=== PATIENT | male | born 1965 | race Caucasian/White ===

== ENCOUNTER 2016-04-07 11:23 | Emergency (ER) | payer OTHER ==
[~2016-04-07] VITALS: Ht 167.6 cm; Wt 115.2 kg
[2016-04-07 11:25] VITALS: BP 190/112
--- NOTE | 2016-04-07 11:29 | NUR ---
Patient ambulated to bed 02.
--- NOTE | 2016-04-07 11:31 | NUR ---
Dr. Grover evaluating patient at bedside.
--- NOTE | 2016-04-07 11:33 | NUR ---
PATIENT PRESENTS TO ED DUE TO HIGH BLOOD PRESSURE AND HEADACHE .DENIES N/V/D; SKIN IS PINK/WARM/DRY; AAOX4 WITH EVEN AND STEADY GAIT; LUNGS CLEAR BL; HR EVEN AND REGULAR; PT DENIES ANY FEVER, CP, SOB, OR COUGH AT THIS TIME; PATIENT STATES PAIN OF 7/10 AT THIS TIME; PATIENT POSITIONED FOR COMFORT; HOB ELEVATED; BEDRAILS UP X2; BED DOWN.
[2016-04-07] MEDS ORDERED: NIFEdipine 10 MG CAPLF PO ONE (11:40)
--- NOTE | 2016-04-07 11:56 | NUR ---
PT WENT FOR CT VIA WHEELCHAIR PT AAO.
--- NOTE | 2016-04-07 11:58 | NUR ---
Patient back from Ct via wheelchair per tech.
--- NOTE | 2016-04-07 12:05 | NUR ---
PT BACK FROM CT PT AAO, NO PAIN NOTED, AT BEDSIDE
[2016-04-07 12:42] VITALS: BP 144/91
--- NOTE | 2016-04-07 12:42 | NUR ---
Patient discharged with v/s stable. Written and verbal after care instructions given and explained. Patient verbalized understanding. Ambulatory with steady gait. All questions addressed prior to discharge. Advised to follow up with PMD.
== END 2016-04-07 12:42 | disposition home or self-care (01) ==
LOC: MED 11:23
DX: I16.0 Hypertensive urgency (principal); R51 Headache; E11.9 Type 2 diabetes mellitus without complications